=== PATIENT | female | born 1955 | race Caucasian/White ===

== ENCOUNTER → 2020-07-23 09:07 | Outpatient (BNVA) | payer OTHER, SELFPAY | PROVIDERS: PCP Internal Medicine; Referring Provider Internal Medicine; Visit Provider Surgery | DX: E66.3 Overweight (principal); Z68.27 Body mass index [BMI] 27.0-27.9, adult; K91.2 Postsurgical malabsorption, not elsewhere classified; Z98.84 Bariatric surgery status | CPT/HCPCS: 99212 ==

== ENCOUNTER → 2020-08-20 08:59 | Outpatient (BNVA) | payer OTHER, SELFPAY | PROVIDERS: PCP Internal Medicine; Visit Provider Dietitian, Registered | DX: Z76.89 Persons encountering health services in other specified circumstances (principal) ==

== ENCOUNTER → 2020-11-01 08:37 | Outpatient (BNVA) | payer OTHER, SELFPAY | PROVIDERS: PCP Internal Medicine; Visit Provider Physician Assistant ==

== ENCOUNTER → 2020-12-06 08:18 | Outpatient (BNVA) | payer OTHER, SELFPAY | PROVIDERS: PCP Internal Medicine; Visit Provider Physician Assistant ==

== ENCOUNTER → 2021-04-14 14:10 | Outpatient (BNVA) | payer OTHER, SELFPAY | PROVIDERS: PCP Internal Medicine; Referring Provider Internal Medicine; Visit Provider Surgery ==

== ENCOUNTER → 2021-05-28 11:08 | Outpatient (BNVA) | payer OTHER, SELFPAY | PROVIDERS: PCP Internal Medicine; Referring Provider Internal Medicine | DX: N20.0 Calculus of kidney (principal) ==

== ENCOUNTER 2022-05-07 12:38 | Outpatient (REF) | payer OTHER, SELFPAY ==
--- NOTE | ~2022-05-07 | US_ITS ---
EXAMINATION: US RETROPERITONEAL LIMITED (RENAL ONLY) CLINICAL INFORMATION: Calculus of kidney. COMPARISON: None TECHNIQUE: Real-time imaging of the kidneys. FINDINGS: RIGHT KIDNEY: 10.0 x 4.4 x 4.0 cm (SAG x AP x TRV). The kidney is normal in size, contour, and echogenicity. Renal cortical thickness is normal. There is a 2 mm stone in the midpole. No focal parenchymal lesions or hydronephrosis. LEFT KIDNEY: 9.9 x 4.8 x 5.3 cm (SAG x AP x TRV). The kidney is normal in size, contour, and echogenicity. Renal cortical thickness is normal. No calculi or focal parenchymal lesions. No hydronephrosis. US/US renal BI IMPRESSION: Small right renal stone.
== END 2022-05-07 12:39 | disposition home or self-care (01) ==
LOC: HO.US 12:38
DX: N20.0 Calculus of kidney (principal)
CPT/HCPCS: 76775

== ENCOUNTER 2023-05-14 09:33 | Outpatient (REF) | payer OTHER, SELFPAY ==
--- NOTE | ~2023-05-14 | US_ITS ---
EXAMINATION: US RETROPERITONEAL LIMITED (RENAL ONLY) CLINICAL INFORMATION: Personal history of urinary calculi. COMPARISON: Renal ultrasound 05/07/2022. TECHNIQUE: Real-time imaging of the kidneys. FINDINGS: RIGHT KIDNEY: 9.5 x 5.1 x 5.4 cm (SAG x AP x TRV). The kidney is normal in size, contour, and echogenicity. Renal cortical thickness is normal. No focal parenchymal lesions or hydronephrosis. Slightly increased 0.4 cm hyperechoic focus in the interpolar region previously 0.2 cm, with no associated posterior shadowing or twinkle artifact. LEFT KIDNEY: 9.4 x 4.8 x 5.8 cm (SAG x AP x TRV). The kidney is normal in size, contour, and echogenicity. Renal cortical thickness is normal. No calculi or focal parenchymal lesions. No hydronephrosis. US/US renal BI IMPRESSION: Slightly increased 0.4 cm hyperechoic focus in the interpolar region of the right kidney without discrete posterior shadowing nor twinkle artifact. Although this could represent a nonobstructive calculus, a very small angiomyolipoma is not excluded. Recommend continued follow-up by ultrasound with an interval study in 6-12 months.
== END 2023-05-14 09:34 | disposition home or self-care (01) ==
LOC: HO.US 09:33
PROVIDERS: PCP Internal Medicine; Visit Provider Urology
DX: Z87.442 Personal history of urinary calculi (principal)
CPT/HCPCS: 76775

== ENCOUNTER 2023-06-21 09:39 | Outpatient (AMB) | payer OTHER, SELFPAY ==
--- NOTE | 2023-06-21 09:47 | MHC.OFFVIS ---
Intake Intake Visit Reasons: 1 yr renal US(set) Intake Note: Patient is present for yearly ultrasound follow up /kidney stones Urology Medications: Magnesium, Vitamin B6 Blood Thinner: aspirin Manager Orange Required: No Accompanied by: Self / Same As Patient Allergies gentamicin [GENTAMICIN] Allergy (Unknown, Verified 06/21/23 10:12) SEVERE EYE PAIN Medication List - Last Reconciled 06/21/23 by REBEKAH Garcia- aspirin 81 mg PO DAILY benazepril 10 mg PO DAILY calcium citrate-vitamin D3 500-200 mg-unit tabs PO BID clotrimazole 1% 1 appl topical BID erfnvcvmquqf-niu-punl-FA-vit K 45 mg iron- 800 mcg-120 mcg (Bariatric Multivitamins) caps PO DAILY rosuvastatin (Crestor) 10 mg PO DAILY HPI HPI Comments History of Present Illness Details Luan is a very pleasant 67-year-old female patient. She has a past medical history of renal cysts, recurrent nephrolithiasis, hypertension, hyperlipidemia, diabetes, and overweight. She presents to the office today for follow-up of her nephrolithiasis. In discussion with the patient today she reports to be doing and feeling well. Recent renal imaging results reviewed with the patient today. Right kidney with no focal parenchymal lesions or hydronephrosis. Slightly increased 0.4 cm hyperechoic focus in the interpolar region previously 0.2 cm, with no associated posterior shadowing or twinkle artifact. Left kideny with no calculi or focal parenchymal lesions. No hydronephrosis. Slightly increased 0.4 cm hyperechoic focus in the interpolar region of the right kidney without discrete posterior shadowing nor twinkle artifact. Although this could represent a nonobstructive calculus, a very small angiomyolipoma is not excluded. Recommend continued follow-up by ultrasound with an interval study in 6-12 months per radiology report. When asked patient reports to be happy with current voiding parameters. She denies any issues with her urination. She denies urinary urgency, urinary frequency, incontinence, nocturia, hematuria, dysuria, foul smelling urine, changes to urinary stream, flank pain, fever, and or chills. In office urinalysis results reviewed with the patient today. She discusses recently losing her cousin to pancreatic cancer and also discusses her being a patient of Dr. Engle for renal cysts. She otherwise offers no issues or concerns. [facility] Medical History Renal cyst, acquired Recurrent nephrolithiasis Overweight History of kidney stones Hypertension Hyperlipidemia Type II diabetes mellitus Surgical History History of repair of hiatal hernia S/P laparoscopic sleeve gastrectomy History of colonoscopy Other specified postprocedural states History of endometrial ablation History of cholecystectomy Family History Father Hypertension Arthritis Macular degeneration Kidney disease Mother Atrial fibrillation History of colostomy H/O bilateral hip replacements Obesity CVD (cardiovascular disease) Brother Kidney stones Son Spina bifida Hypercholesterolemia History of multiple strokes Daughter Sarcoidosis Obesity Daughter Fibromyalgia Thrombosis Social History Alcohol intake: current Alcohol intake frequency: holidays/special occasions only Patient Tobacco Use Status: Never used Tobacco Review of Systems Const All systems reviewed & are unremarkable except as noted in HPI and below Eyes Reports no additional complaints ENT Reports no additional complaints Card Reports as per HPI Resp Reports no additional complaints GI Reports no additional complaints Reports as per HPI Musc Reports no additional complaints Neuro Reports no additional complaints Psych Reports no additional complaints Endo Reports as per HPI Ambrocio/Lymph Reports no additional complaints Aller/Immun Reports no additional complaints Physical Exam Const General: cooperative, comfortable, no acute distress, well developed, alert and awake Orientation/consciousness: patient oriented x3 HEENT Head: Yes normal to inspection, Yes normocephalic and Yes atraumatic Ears: hearing grossly normal bilaterally Eyes General: appearance normal, both eyes and all related structures Neck Neck: Yes normal visual inspection and Yes trachea midline Chest Chest palpation & inspection: normal inspection of the chest Resp Effort & Inspection: normal respiratory effort and able to speak in complete sentences Cardio Rate: regular rate GI Inspection: Yes normal to inspection General: Yes no CVA tenderness Back/Spine/Pelvis Back: no CVA tenderness Skin General skin exam: no rashes or lesions noted Neuro General: patient oriented x3 Extrem General: Yes normal to inspection Psych Appearance: grossly normal and well kempt Mental Status: mental status grossly normal Speech and movement: Normal speech and movement present and Clear speech present Affect: normal affect Attitude: cooperative Thought process: Normal thought process present Thought content: Normal thought content present Results AMB Urinalysis, Automated UA Leukoctes 0 Thalia/uL Last Edit by Hiral Sheets on 06/21/23 10:08 UA Nitrite Negative Last Edit by Hiral Sheets on 06/21/23 10:08 UA Urobilinogen 0.2 mg/dL Last Edit by Hiral Sheets on 06/21/23 10:08 UA Protein 15 mg/dL Last Edit by [employer]katie Sheets on 06/21/23 10:08 UA pH 8.0 Last Edit by [employer]katie Sheets on 06/21/23 10:08 UA Blood 0 Jae/uL Last Edit by [employer]katie Sheets on 06/21/23 10:08 UA Specific [place] 1.010 Last Edit by [employer]katie Sheets on 06/21/23 10:08 UA Ketone Negative Last Edit by [employer]katie Sheets on 06/21/23 10:08 UA Bilirubin 0 mg/dL Last Edit by [employer]katie Sheets on 06/21/23 10:08 UA Glucose 0 mg/dL Last Edit by [employer]katie Sheets on 06/21/23 10:08 Results Reviewed Results Reviewed: Laboratory Last Values Urine pH (Auto) 8.0 06/21/23 09:50 Specific [place] (Auto) 1.010 06/21/23 09:50 Urine Protein (Auto) 15 mg/dL 06/21/23 09:50 Glucose (UA)(Auto) 0 mg/dL 06/21/23 09:50 Urine Ketones (Auto) Negative 06/21/23 09:50 Urine Blood (Auto) 0 Jae/uL 06/21/23 09:50 Urine Nitrite (Auto) Negative 06/21/23 09:50 Urine Bilirubin (Auto) 0 mg/dL 06/21/23 09:50 Urine Urobilinogen (Auto) 0.2 mg/dL 06/21/23 09:50 Leukocyte Esterase (Auto) 0 Thalia/uL 06/21/23 09:50 Date of Service: 05/14/23 EXAMINATION: US RETROPERITONEAL LIMITED (RENAL ONLY) FINDINGS: RIGHT KIDNEY: 9.5 x 5.1 x 5.4 cm (SAG x AP x TRV). The kidney is normal in size, contour, and echogenicity. Renal cortical thickness is normal. No focal parenchymal lesions or hydronephrosis. Slightly increased 0.4 cm hyperechoic focus in the interpolar region previously 0.2 cm, with no associated posterior shadowing or twinkle artifact. LEFT KIDNEY: 9.4 x 4.8 x 5.8 cm (SAG x AP x TRV). The kidney is normal in size, contour, and echogenicity. Renal cortical thickness is normal. No calculi or focal parenchymal lesions. No hydronephrosis. IMPRESSION: Slightly increased 0.4 cm hyperechoic focus in the interpolar region of the right kidney without discrete posterior shadowing nor twinkle artifact. Although this could represent a nonobstructive calculus, a very small angiomyolipoma is not excluded. Recommend continued follow-up by ultrasound with an interval study in 6-12 months. Assessment & Plan Assessment & Plan (1) Angiolipoma: Code(s): D17.9 - Benign lipomatous neoplasm, unspecified (2) History of kidney stones: Code(s): Z87.442 - Personal history of urinary calculi Plan In office urinalysis results reviewed with the patient today. Recent renal imaging results reviewed with the patient today; as noted above. Continue vit B6 as discussed and prescribed. Continue adding one ounce of lemon juice to water daily Continue drinking plenty of water daily. Will obtain renal ultrasound in 6 months Follow-up in 6 months with imaging to be completed prior; or sooner with any issues, concerns, and or questions. Orders: Orders AMB Urinalysis Automated Today Z13.9 - Encounter for screening, unspecified US renal BI 6 Months D17.9 - Benign lipomatous neoplasm, unspecified, N20.0 - Calculus of kidney Patient Instructions: The patient had an opportunity to ask questions regarding the treatment plan. All questions were answered. Physical exam, labs, and imaging were discussed and reviewed in detail. As well as risks, benefits, and discussion of treatment choices. No major barriers to understanding were identified. The patient expressed understanding and agreement with the above treatment plan. The patient was made aware they should contact our office by phone for worsening of their current condition, the appearance of new symptoms, or with any questions or concerns. Compliance is encouraged with any medications and follow up testing that is ordered. It is a privilege to be allowed the opportunity to participate in? your urological care.? Again, if you have any questions or concerns If you have any questions or concerns please do not hesitate to contact me. The office is [phone]. This note is constructed using voice recognition software. While every effort has been made to ensure accuracy chief writer errors may have been included. Yours sincerely, REBEKAH Garcia-VINH Coding Level of Care Code Est Pt Level 3 (65140) Diagnoses Angiolipoma D17.9 History of kidney stones Z87.442
== END 2023-06-21 10:52 | disposition home or self-care (01) ==
PROVIDERS: PCP Internal Medicine; Visit Provider Nurse Practitioner Family
DX: D17.9 Benign lipomatous neoplasm, unspecified (principal); Z87.442 Personal history of urinary calculi; Z13.9 Encounter for screening, unspecified
CPT/HCPCS: 99213

== ENCOUNTER → 2023-06-21 09:39 | Outpatient (BNVA) | payer OTHER, SELFPAY | PROVIDERS: Visit Provider Nurse Practitioner Family | DX: Z87.442 Personal history of urinary calculi (principal) | CPT/HCPCS: 81003 ==

== ENCOUNTER 2023-12-13 08:39 | Outpatient (REF) | payer OTHER, SELFPAY ==
--- NOTE | ~2023-12-13 | US_ITS ---
EXAMINATION: US RETROPERITONEAL LIMITED (RENAL ONLY) CLINICAL INFORMATION: Calculus of kidney. COMPARISON: Renal ultrasound 05/14/2023 and 05/07/2022. TECHNIQUE: Real-time imaging of the kidneys. FINDINGS: RIGHT KIDNEY: 9.9 x 4.8 x 4.8 cm (SAG x AP x TRV). The kidney is normal in size, contour, and echogenicity. Renal cortical thickness is normal. No calculi or focal parenchymal lesions. No hydronephrosis. LEFT KIDNEY: 9.7 x 4.7 x 4.5 cm (SAG x AP x TRV). The kidney is normal in size, contour, and echogenicity. Renal cortical thickness is normal. No focal parenchymal lesions or hydronephrosis. There is 0.3 x 0.2 x 0.3 cm nonobstructing calculus in the lower pole US/US renal BI IMPRESSION: Nonobstructing calculus in lower pole of left kidney and unremarkable right kidney.
== END 2023-12-13 08:40 | disposition home or self-care (01) ==
LOC: HO.US 08:39
PROVIDERS: PCP Internal Medicine; Visit Provider Nurse Practitioner Family
DX: N20.0 Calculus of kidney (principal); D17.9 Benign lipomatous neoplasm, unspecified
CPT/HCPCS: 76775

== ENCOUNTER 2023-12-21 10:30 | Outpatient (AMB) | payer OTHER, SELFPAY ==
--- NOTE | 2023-12-21 10:43 | A.OFFVIS_ITS ---
Intake Intake Visit Reasons: 6m/US(set) Intake Note: Patient presents today for a follow up on: US Meds- None Allergies to Antibiotic- Gentamicin Blood Thinner- Aspirin No urine was provided in today's visit Asphalt Mixer Required: No Accompanied by: Self / Same As Patient Allergies gentamicin [GENTAMICIN] Allergy (Unknown, Verified 12/21/23 12:01) SEVERE EYE PAIN Medication List - Last Reconciled 12/21/23 by REBEKAH Garcia-VINH aspirin 81 mg PO DAILY benazepril 10 mg PO DAILY calcium citrate-vitamin D3 500-200 mg-unit tabs PO BID clotrimazole 1% 1 appl topical BID jrigadkxonju-udy-ucic-FA-vit K 45 mg iron- 800 mcg-120 mcg (Bariatric Multivitamins) caps PO DAILY rosuvastatin (Crestor) 10 mg PO DAILY semaglutide (Ozempic) mg subcut HPI HPI Comments History of Present Illness Details Luan is a very pleasant 68-year-old female patient. She has a past medical history of renal cysts, recurrent nephrolithiasis, hypertension, hyperlipidemia, diabetes, and overweight. She presents to the office today for follow-up of her nephrolithiasis. In discussion with the patient today she reports to be doing and feeling well. Recent renal imaging results reviewed with the patient today. Bilateral kidneys with no hydronephrosis or lesions. 3 mm nonobstructing left lower pole calculus. She reports to be drinking plenty of water daily. She discusses being unable to add lemon juice to water as she experiences breakouts around her mouth when eating or consuming acidic foods. She does report having had lower back pain recently. However no CVA tenderness noted bilaterally. She otherwise denies any bothersome urinary issues or concerns. She denies urinary urgency, urinary frequency, incontinence, nocturia, hematuria, dysuria, foul smelling urine, changes to urinary stream, flank pain, fever, and or chills. In office urinalysis results reviewed with the patient today. She otherwise offers no issues or concerns. [facility], [facility] Medical History Renal cyst, acquired Recurrent nephrolithiasis Overweight History of kidney stones Hypertension Hyperlipidemia Type II diabetes mellitus Surgical History History of repair of hiatal hernia S/P laparoscopic sleeve gastrectomy History of colonoscopy Other specified postprocedural states History of endometrial ablation History of cholecystectomy Family History Father Hypertension Arthritis Macular degeneration Kidney disease Mother Atrial fibrillation History of colostomy H/O bilateral hip replacements Obesity CVD (cardiovascular disease) Brother Kidney stones Son Spina bifida Hypercholesterolemia History of multiple strokes Daughter Sarcoidosis Obesity Daughter Fibromyalgia Thrombosis Social History Alcohol intake: current Alcohol intake frequency: holidays/special occasions only Patient Tobacco Use Status: Never used Tobacco Review of Systems Const All systems reviewed & are unremarkable except as noted in HPI and below Eyes Reports no additional complaints ENT Reports no additional complaints Card Reports as per HPI Resp Reports no additional complaints GI Reports no additional complaints Reports as per HPI Musc Reports no additional complaints Neuro Reports no additional complaints Psych Reports no additional complaints Endo Reports as per HPI Ambrocio/Lymph Reports no additional complaints Aller/Immun Reports no additional complaints Physical Exam Const General: cooperative, healthy appearing, comfortable, no acute distress, well developed, alert and awake Orientation/consciousness: patient oriented x3 Limitations: no limitations HEENT Head: Yes normal to inspection, Yes normocephalic and Yes atraumatic Ears: hearing grossly normal bilaterally Eyes General: appearance normal, both eyes and all related structures Neck Neck: Yes normal visual inspection and Yes trachea midline Chest Chest palpation & inspection: normal inspection of the chest Resp Effort & Inspection: normal respiratory effort and able to speak in complete sentences Cardio Rate: regular rate GI Inspection: Yes normal to inspection General: Yes no CVA tenderness Back/Spine/Pelvis Back: no CVA tenderness Skin General skin exam: no rashes or lesions noted Neuro General: patient oriented x3 Extrem General: Yes normal to inspection Psych Appearance: grossly normal and well kempt Mental Status: mental status grossly normal Speech and movement: Normal speech and movement present and Clear speech present Affect: normal affect Attitude: cooperative Thought process: Normal thought process present Thought content: Normal thought content present Insight: Fair insight present (Psych) Judgement: Fair judgement present (Psych) Results Reviewed Results Reviewed: Date of Service: 12/13/23 Procedure(s): US renal BI Calculus of kidney. FINDINGS: RIGHT KIDNEY: 9.9 x 4.8 x 4.8 cm (SAG x AP x TRV). The kidney is normal in size, contour, and echogenicity. Renal cortical thickness is normal. No calculi or focal parenchymal lesions. No hydronephrosis. LEFT KIDNEY: 9.7 x 4.7 x 4.5 cm (SAG x AP x TRV). The kidney is normal in size, contour, and echogenicity. Renal cortical thickness is normal. No focal parenchymal lesions or hydronephrosis. There is 0.3 x 0.2 x 0.3 cm nonobstructing calculus in the lower pole IMPRESSION: Nonobstructing calculus in lower pole of left kidney and unremarkable right kidney. Assessment & Plan Assessment & Plan (1) History of kidney stones: Code(s): Z87.442 - Personal history of urinary calculi (2) Nephrolithiasis: Code(s): N20.0 - Calculus of kidney Plan In office urinalysis results reviewed with the patient today; as noted above. Recent renal imaging results reviewed with the patient today; as noted above. Discussed at length potential causes of nephrolithiasis. Patient currently denies any bothersome urinary issues or concerns. Patient reports be happy with current voiding parameters. Discussed, educated, and stressed the importance of drinking plenty of water daily. Will obtain renal ultrasound in 1 year. Follow-up in 1 year with imaging to be completed prior; or sooner with any issues, concerns, and or questions. Patient Instructions: The patient had an opportunity to ask questions regarding the treatment plan. All questions were answered. Physical exam, labs, and imaging were discussed and reviewed in detail. As well as risks, benefits, and discussion of treatment choices. No major barriers to understanding were identified. The patient expressed understanding and agreement with the above treatment plan. The patient was made aware they should contact our office by phone for worsening of their current condition, the appearance of new symptoms, or with any questions or concerns. Compliance is encouraged with any medications and follow up testing that is ordered. It is a privilege to be allowed the opportunity to participate in? your urological care.? Again, if you have any questions or concerns If you have any questions or concerns please do not hesitate to contact me. The office is [phone]. This note is constructed using voice recognition software. While every effort has been made to ensure accuracy human resources talent manager errors may have been included. Yours sincerely, MASOOD Garcia Coding Level of Care Code Est Pt Level 3 (81369) Diagnoses History of kidney stones Z87.442 Nephrolithiasis N20.0
== END 2023-12-21 11:33 | disposition home or self-care (01) ==
PROVIDERS: PCP Internal Medicine; Visit Provider Nurse Practitioner Family
DX: Z87.442 Personal history of urinary calculi (principal); N20.0 Calculus of kidney
CPT/HCPCS: 99213

== ENCOUNTER → 2023-12-21 10:30 | Outpatient (BNVA) | payer OTHER, SELFPAY | PROVIDERS: PCP Internal Medicine; Visit Provider Nurse Practitioner Family ==

== ENCOUNTER 2024-04-05 14:04 | Outpatient (AMB) | payer OTHER, SELFPAY ==
--- NOTE | 2024-04-05 14:06 | A.OFFVIS_ITS ---
VS Expanded 04/05/24 14:17 BP 162/82 H Blood Pressure Location Rt brachial Blood Pressure Position Sitting Pulse 68 Temp 97.6 F Temperature Source Tympanic Pulse Oximetry 96 Oxygen Delivery Method Room Air Height 5 ft 1 in Weight 157 lb 9.6 oz BMI 29.8 Body Fat % 31.4 Body Fat Mass 49.4 Fat Free Mass 108.0 Visceral Fat Rating 9.0 Body Water % 48.3 Body Water Mass 76.0 Muscle Mass/Score 102.6 Basal Metabolic Rate/Score 1,439 Intake Visit Reasons: OV PO LSG 04/12/2019 Allergies gentamicin [GENTAMICIN] Allergy (Unknown, Verified 04/05/24 14:11) SEVERE EYE PAIN Medication List - Last Reconciled 04/05/24 by CIARA Izaguirre aspirin 81 mg PO DAILY benazepril 10 mg PO DAILY calcium citrate-vitamin D3 500-200 mg-unit tabs PO BID clotrimazole 1% 1 appl topical BID acnksuywpowo-dkm-ydlp-FA-vit K 45 mg iron- 800 mcg-120 mcg (Bariatric Multivitamins) caps PO DAILY rosuvastatin (Crestor) 10 mg PO DAILY semaglutide (Ozempic) mg subcut HPI Comments Details: This?is a?68?yo female who is s/p LSG 04/12/2019. Presents for 5 year post op visit. Weight at last visit on 04/14/2021 was 152 pounds with a BMI of 28.7, weight today is 157.6 pounds, representing a 5.6 pound weight gain with a BMI today of 29.8.? No complaints of nausea, emesis, reflux, or constipation. Occasional pain when eating protein- shakes or meat, dairy. Taking Ozempic but feels it is not helpful in terms of what she eats but she thinks it controls her blood sugars better. Present meal plan includes: 3oz meat, small portion of carb, similar portion of vegetables -2 meals per day like this intermittently uses protein shakes in her coffee struggles with nighttime snacking- tries to have fruit, cheese/crackers, or PB toast; sometimes will have cookies or popcorn MVI Exercise routine includes: walking- 30 min 2-3x/week PFSH Medical History Renal cyst, acquired Recurrent nephrolithiasis Overweight History of kidney stones Hypertension Hyperlipidemia Type II diabetes mellitus Surgical History History of repair of hiatal hernia S/P laparoscopic sleeve gastrectomy History of colonoscopy Other specified postprocedural states History of endometrial ablation History of cholecystectomy Family History Father Hypertension Arthritis Macular degeneration Kidney disease Mother Atrial fibrillation History of colostomy H/O bilateral hip replacements Obesity CVD (cardiovascular disease) Brother Kidney stones Son Spina bifida Hypercholesterolemia History of multiple strokes Daughter Sarcoidosis Obesity Daughter Fibromyalgia Thrombosis Social History Alcohol intake: current Alcohol intake frequency: holidays/special occasions only Patient Tobacco Use Status: Never used Tobacco Assessment & Plan Assessment & Plan (1) S/P laparoscopic sleeve gastrectomy: Code(s): Z98.84 - Bariatric surgery status Category: Surgical (2) Overweight: Code(s): E66.3 - Overweight Category: Medical Plan Suggested incorporating protein knowles to make sure pt gets adequate protein per day. She knows she needs to cut back on evening snacking. Suggested increasing days per week walking and time spent. Labs ordered. RTC 1 year, gave pt my cell phone # for any questions between now and next appt. I spent a total of 30 minutes reviewing/updating records, examining the patient and counseling the patient on weight management as detailed above. Orders: Orders Insulin Today Z98.84 - Bariatric surgery status Hemoglobin A1c Today Z98.84 - Bariatric surgery status Lipid Panel Today Z98.84 - Bariatric surgery status Vitamin B12 and Folate Today Z98.84 - Bariatric surgery status Zinc Today Z98.84 - Bariatric surgery status Complete Blood Count Auto Diff Today Z98.84 - Bariatric surgery status IRON PROFILE Today Z98.84 - Bariatric surgery status Comprehensive Met. Panel Today Z98.84 - Bariatric surgery status C Reactive Protein Today Z98.84 - Bariatric surgery status Vitamin B1 Today Z98.84 - Bariatric surgery status Vitamin A Today Z98.84 - Bariatric surgery status TSH reflex Free T4 Today Z98.84 - Bariatric surgery status Ferritin Today Z98.84 - Bariatric surgery status Vitamin D 25-OH Total Today Z98.84 - Bariatric surgery status
[2024-04-05 14:17] VITALS: BP 162/82; PULSE 68; TEMP 36.4; O2SAT 96; BMI 29.8
== END 2024-04-05 14:47 | disposition home or self-care (01) ==
PROVIDERS: PCP Internal Medicine; Visit Provider Physician Assistant Surgical
DX: E66.3 Overweight (principal); Z68.29 Body mass index [BMI] 29.0-29.9, adult; Z90.3 Acquired absence of stomach [part of]; Z98.84 Bariatric surgery status
CPT/HCPCS: 99214

== ENCOUNTER → 2024-04-05 14:04 | Outpatient (BNVA) | payer OTHER, SELFPAY | PROVIDERS: PCP Internal Medicine; Visit Provider Physician Assistant Surgical ==

== ENCOUNTER 2024-04-20 15:04 | Outpatient (REF) | payer OTHER, SELFPAY ==
[2024-04-20 15:25] LABS: MANUAL DIFF FLAG NO
[2024-04-20 17:30] LABS: Basophils Percent Auto 0.5 % (0-2); Eosinophils Absolute Auto 0.1 X10*3/uL (0.0-0.4); Eosinophils Percent Auto 1.4 % (0-4); Hematocrit 41.4 % (37.0-47.0); Hemoglobin 13.8 g/dl (12.0-16.0); Imm Gran Abs Auto 0.03 X10*3/uL (0.00-0.03); Imm Gran Pct Auto 0.5 % (0.0-0.4); Lymphocytes Absolute Auto 2.2 X10*3/uL (1.2-4.9); Lymphocytes Percent Auto 34.3 % (20-40); Mean Corpuscular HGB Conc 33.3 g/dl (31.0-35.0); Mean Corpuscular Hemoglobin 31.2 pg (27.0-33.0); Mean Corpuscular Volume 93.7 fL (80.0-98.0); Mean Platelet Volume 11.4 fL (9.4-12.3); Monocytes Absolute Auto 0.4 X10*3/uL (0.1-1.2); Monocytes Percent Auto 5.5 % (2-11); Neutrophils Absolute Auto 3.8 x10*3/uL (2.0-8.3); Neutrophils Percent Auto 57.8 % (45-73); Platelet Count 214 X10*3/uL (160-400); Red Blood Count 4.42 X10*6/uL (4.20-5.50); White Blood Count 6.5 X10*3/uL (4.8-10.8)
[2024-04-20 17:48] LABS: Alanine Aminotransferase 22 U/L (0-31); Albumin Level 4.1 g/dL (3.5-5.0); Alkaline Phosphatase 63 U/L (39-117); Anion Gap 13 (12-20); Aspartate Amino Transferase 27 U/L (5-31); Bilirubin Total 0.4 mg/dL (0.0-1.0); Blood Urea Nitrogen 16 mg/dL (9-16); C Reactive Protein < 0.10 mg/dL (< or = 0.50); Calcium 9.4 mg/dL (8.4-10.2); Carbon Dioxide 27 mmol/L (22-29); Chloride 105 mmol/L (96-108); Cholesterol 134 mg/dL (<200); Estimated Glomerular Filt Rate > 60; Glucose Random 96 mg/dL (60-115); HDL Cholesterol 59 mg/dL (>40); Iron 123 mcg/dL (30-160); LDL Cholesterol Calculated 55 mg/dL (<100); Percent Iron Saturation 43 % (15-50); Potassium 4.1 mmol/L (3.3-5.1); Sodium 141 mmol/L (135-145); Total Iron Binding Capacity 283 mcg/dL (228-428); Total Protein 7.3 g/dL (6.5-8.0); Triglycerides 101 mg/dL (<150); Unsaturated Iron Binding 160 ug/dL
[2024-04-20 17:54] LABS: Ferritin 128 ng/mL (10-250); Insulin 9 uU/mL (2-29); TSH reflex Free T4 0.99 uIU/mL (0.32-4.0); Vitamin D 25-OH Total 31.3 ng/mL (>30)
[2024-04-20 18:07] LABS: Folate 11.9 ng/mL (> or = 4.0); Vitamin B12 377 pg/mL (200-900)
[2024-04-21 05:23] LABS: Estimated Average Glucose 108 mg/dL; Hemoglobin A1c % 5.4 % (<6.0)
[2024-04-26 06:33] LABS: Vitamin B1 15 nmol/L (8-30)
== END 2024-04-20 15:05 | disposition home or self-care (01) ==
LOC: HO.LAB 15:04
PROVIDERS: PCP Internal Medicine; Visit Provider Physician Assistant Surgical
DX: Z98.84 Bariatric surgery status (principal); Z13.1 Encounter for screening for diabetes mellitus
CPT/HCPCS: 36415; 80053; 80061; 82306; 82607; 82728; 82746; 83036; 83525; 83540; 84425; 84443; 84590; 84630; 85025; 86140

== ENCOUNTER 2024-12-07 15:27 | Outpatient (REF) | payer MEDICARE, SELFPAY ==
--- NOTE | ~2024-12-07 | US_ITS ---
EXAMINATION: US KIDNEY BILATERAL HISTORY: N20.0 - Calculus of kidney TECHNIQUE: Real-time grayscale ultrasound imaging of the kidneys was performed and images were reviewed. COMPARISON: Comparison is made with the prior examination dated 12/13/2023. FINDINGS: Right kidney: The right kidney measures 9.7 x 5.2 x 5.3 cm. Renal parenchymal echotexture and thickness are normal. There are no masses. There is no hydronephrosis or renal calculi. Left Kidney: The left kidney measures 10.1 x 4.1 x 4.7 cm. Renal parenchymal echotexture and thickness are normal. There are no masses. There is no hydronephrosis or renal calculi. The previously seen 3 mm calculus of the lower pole of the left kidney is not identified. US/US renal BI IMPRESSION: Unremarkable renal ultrasound. Electronically signed by: Chadd Richter MD 12/08/2024 07:54 AM EDT
--- OUTSIDE RECORDS SUMMARY | 2024-12-07 17:48 | XMS_ITS | Clinical Summary ---
Author Organization [email or web address] [facility] Address [address] [place] [address] Care Team Providers Care Supervisor Liquefaction Name Role Phone Karthik Appiah MD Primary Care Provider + [phone] Surgical History Surgery Date Site/Laterality Comments CHOLECYSTECTOMY PROCEDURE: HISTORICAL CHOLECYSTECTOMY STOMACH SURGERY 04/12/2019 PROCEDURE: MI UNLISTED PROCEDURE STOMACH; COMMENT: gastric sleeve OTHER SURGICAL HISTORY PROCEDURE: HYSTEROSCOPY, SURGICAL/ABLATION OTHER SURGICAL HISTORY 04/12/2019 PROCEDURE: MI RPR PARAESOPH HIATAL HERNIA W/LAPT W/O MESH; COMMENT: Same time as lap gastric sleeve surgery OTHER SURGICAL HISTORY 04/12/2019 PROCEDURE: MI EGD DILATION GASTRIC/DUODENAL STRICTURE; COMMENT: Same time as lap gastric sleeve surgery Medical History Medical History Date Comments Mixed hyperlipidemia DX:Mixed hy perlipidemia Essential (primary) hypertension DX:Essential (primary) hypertension Type 2 diabetes mellitus wit hout complications DX:Type 2 diabetes mellitus without complications (HCC) Intestinal malabsorption fol lowing gastrectomy 06/04/2021 DX:Intestinal malabsorption following gastrectomy Family History Medical History Relation Name Comments Other: Cholelithiasis Brother Other: fibromyalgia Daughter 1 Thrombos is Obesity Daughter 2 Sarcoidosis Hypertension Father Arthritis, Macu lar degeneration, kidney disease Coronary artery disease Mother A-fi b, bilateral hip replacements, colostomy, obesity Hyperlipidemia Son Spina bifida, hx multiple strokes Relation Name Status Comments Brother Daughter 1 Daughter 2 Father Mother Son Social History Tobacco Use Types Packs/Day Years Used Date Smoking Tobacco: Never Smokeless Tobacco: Never Alcohol Use Standard Drinks/Week Comments Never 0 (1 standard drink = 0.6 oz pur e alcohol) Comments Unknown Sex and Gender Information Value Date Recorded Sex Assigned at Female 12/07/2024 2:02 PM EDT Legal Sex Female 10:03 PM EST Gender Identity Female 12/07/2024 2:02 PM EDT Sexual Orientation Straight 12/07/2024 2: 02 PM EDT Obstetrics History Plan of Treatment Upcoming Encounters Date Type Department Care Team (Late st Contact Info) Description 01/02/2025 8:30 AM EDT Appointment [facility] [address] [place] [phone] 01/02/2025 9:00 AM EDT Appointment [facility] [address] [place] [phone] Health Maintenance Due Date Last Done Comments Diabetes: Annual GFR (Glomerular Filtration Rate) 1954 Diabetes: Annual Foot Exam 1964 Diabetes: Annual Retina Eye Exam 1964 DTaP,Tdap,and Td Vaccines (1 - Tdap) 1973 Pneumococcal Vaccine: 50+ Years (1 of 1 - PCV) 2004 Zoster Vaccines (1 of 2) 2004 Cholesterol Screening (Lipid Panel) 08/22/2022 Colorectal Cancer Screening: Colonoscopy 08/22/2022 Depression Screening 08/22/2022 Falls Risk Assessment 08/22/2022 Hepatitis C Screening 08/22/2022 Social Influencers of Health Screening 08/22/2022 Diabetes: Annual Urine Albumin-Creatinine Ratio (uACR) 09/04/2022 Diabetes: Blood Sugar Contro l Test (HGBA1C) 09/04/2022 Hypertension/CHF/CAD Annual BMP Blood Test 09/04/2022 Breast Cancer Screening 12/20/2023 12/20/19, 08/19/2020, 01/09/2019 COVID-19 Vaccine ( - 2023-2 5 season) 2024 Influenza Vaccine (#1) 2024 RSV Immunization Patients 60 + Years Old (1 - 1-dose 75+ series) 2029 Osteoporosis Screening (Bone Density Screening) 08/19/2030 08/19/2020 HIB Vaccines Aged Out No longer eligi ble based on patient's age to complete this topic HPV Vaccines Aged Out No longer eligi ble based on patient's age to complete this topic Hepatitis A Vaccines Aged Out No long er eligible based on patient's age to complete this topic Hepatitis B Vaccines Aged Out No long er eligible based on patient's age to complete this topic IPV Vaccines Aged Out No longer eligi ble based on patient's age to complete this topic MMR Vaccines Aged Out No longer eligi ble based on patient's age to complete this topic Meningococcal ACWY Vaccine Aged Out N o longer eligible based on patient's age to complete this topic Meningococcal B Vacine Aged Out No lo nger eligible based on patient's age to complete this topic RSV Immunization Patients Under 20 months Aged Out No longer eligible b ased on patient's age to complete this topic Varicella Vaccines Aged Out No longer eligible based on patient's age to complete this topic Procedures Procedure Name Priority Date/Time Associated Diagnosis Comments [facility] SCREENING DIGITAL Routine 12/19/2021 1:46 PM EDT Encounter for screening mammogram for malignant neoplasm of breast [facility] DEXA AXIAL SKELETON Routine 08/19/2020 3:14 PM EST Asymptomatic menopausal state from Last 3 Months or Most Recently Relevant to Health Maintenance Results * [facility] SCREENING DIGITAL (12/19/2021 1:46 PM EDT) Anatomical Region Laterality Modality Mammography 12/19/2021 12:5 9 PM EDT Narrative 12/19/2021 1:46 PM EDT [facility] Diagnostic Imaging Department [address] [place] [address] Patient: ??LUAN ZARAGOZA ?/Age/Sex: 1955 - Unit#: ??[id number] ? Location/Status: ??SPDIMAM/REG CLI ? Mnemonic/Ordering Site: ??DIGSC/SPMAM Ordering Physician: ??KARTHIK APPIAH MD [facility] Screening Digital - 12/19/21 - 1319 EXAM: [facility] Screening Digital EXAM DATE AND TIME: 12/19/2021 1:20 PM HISTORY: ??Screening. Family history of breast carcinoma including maternal aunts and 4 paternal cousins. COMPARISON: ??08/19/20, 01/09/19, 05/04/16, 12/31/14 TECHNIQUE: CC and MLO views of both breasts were obtained using full field digital mammography. Bilateral digital breast tomosynthesis was performed in the MLO projection. Computer aided detection with the Estify.2-H was employed. TISSUE DENSITY: b. There are scattered areas of fibroglandular density. FINDINGS: Numerous microcalcifications are scattered bilaterally, showing no significant change. No suspicious masses, grouped microcalcifications, or areas of architectural distortion are seen. Vascular calcification is present. The skin is unremarkable. IMPRESSION: Stable mammographic appearance of the breasts. ??No evidence of malignancy is seen. A negative mammogram in the presence of a clinically suspicious palpable abnormality does not preclude the possibility of malignancy or alter the indications for biopsy. BI-RADS: ??Category 2: Benign RECOMMENDATION(S): 1: Routine screening mammogram BILATERAL in 1 year. 87053, 37328 3342F, 7025F Dictating Physician: ??UMU BURNS MD Electronically Signed by: ??UMU BURNS MD Dic Date/Time: ??12/19/21 1345 Sign date/Time: ??12/19/21 1346 Procedure Note Umu Burns MD - 09/09/2022 [facility] Diagnostic Imaging Department [address] [place] [address] Patient: LUAN ZARAGOZA /Age/Sex: 1955 - 66 - F Unit#: [id number] [facility]/Ordering Site: [facility] Ordering Physician: KARTHIK APPIAH MD [facility] Screening Digital - 12/19/21 - 1319 EXAM: [facility] Screening Digital EXAM DATE AND TIME: 12/19/2021 1:20 PM HISTORY: Screening. Family history of breast carcinoma includingmaternal aunts and 4 paternal cousins. COMPARISON: 08/19/20, 01/09/19, 05/04/16, 12/31/14 TECHNIQUE: CC and MLO views of both breasts were obtained using fullfield digital mammography. Bilateral digital breast tomosynthesis was performedin the MLO projection. Computer aided detection with the [employer] 7.2-Hwas employed. TISSUE DENSITY: b. There are scattered areas of fibroglandular density. FINDINGS: Numerous microcalcifications are scattered bilaterally, showing nosignificant change. No suspicious masses, grouped microcalcifications, or areas of architectural distortion are seen. Vascular calcification is present. The skin is unremarkable. IMPRESSION: Stable mammographic appearance of the breasts. No evidence of malignancyis seen. A negative mammogram in the presence of a clinically suspicious palpable abnormality does not preclude the possibility of malignancy or alter the indications for biopsy. BI-RADS: Category 2: Benign RECOMMENDATION(S): 1: Routine screening mammogram BILATERAL in 1 year. 38293, 58991 3342F, 7025F Dictating Physician: UMU BURNS MD Electronically Signed by: UMU BURNS MD Dic Date/Time: 12/19/21 1345 Sign date/Time: 12/19/21 1346 Karthik Appiah MD IMG BI PROCEDURES Final Resu lt * [facility] DEXA AXIAL SKELETON (08/19/2020 3:14 PM EST) Anatomical Region Laterality Modality Mammography 08/19/2020 11:2 1 AM EST Narrative 08/19/2020 3:14 PM EST [facility] Diagnostic Imaging Department [address] [place] [id number] Patient: ??LUAN ZARAGOZA ?/Age/Sex: 1955 - 64 - F Unit#: ??[id number] ? Location/Status: ??SPDIMAM/REG CLI ? Mnemonic/Ordering Site: ??MAMDEXAAX/SPMAM Ordering Physician: ??KARTHIK APPIAH MD [facility] Dexa Axial Skeleton - 08/19/20 - 1140 [facility] Dexa Axial Skeleton INDICATION: POSTMENOPAUSAL Technique: Bone densitometry was performed utilizing dual energy x-ray absorptiometry (DEXA). The lumbar spine is evaluated in the AP projection from L1 through L4. The proximal femora are evaluated in the AP projection bilaterally. The patient is taking calcium and vitamin D supplements. COMPARISON: 05/04/2016 FINDINGS: AP spine: Bone mineral density: 1.382 gm/cm2 T-score: 1.7 Femoral total (mean, bilateral): Bone mineral density: 1.115 gm/cm2 T-score: 0.9 IMPRESSION: Findings suggesting normal bone mineral density. Statistically significant interval decrease in total mean hip bone mineral density [id number] A report detailing these results has been enclosed. Dictating Physician: ??SHERICE WHALEN MD Electronically Signed by: ??SHERICE WHALEN MD Dic Date/Time: ??08/19/201512 Sign date/Time: ??08/19/201513 Procedure Note Sherice Whalen MD - 09/08/2022 [facility] Diagnostic Imaging Department [address] [place] [address] Patient: BEMICAH VENTURAChristiano Gallagher /Age/Sex: 1955 - 64 - F Unit#: [id number] [facility]onic[facility]Ordering Site: [facility] Ordering Physician: KARTHIK APPIAH MD [facility] Dexa Axial Skeleton - 08/19/20 - 1140 [facility] Dexa Axial Skeleton INDICATION: POSTMENOPAUSAL Technique: Bone densitometry was performed utilizing dual energy x-ray absorptiometry (DEXA). The lumbar spine is evaluated in the AP projectionfrom L1 through L4. The proximal femora are evaluated in the AP projection bilaterally. The patient is taking calcium and vitamin D supplements. COMPARISON: 05/04/2016 FINDINGS: AP spine: Bone mineral density: 1.382 gm/cm2 T-score: 1.7 Femoral total (mean, bilateral): Bone mineral density: 1.115 gm/cm2 T-score: 0.9 IMPRESSION: Findings suggesting normal bone mineral density. Statistically significant interval decrease in total mean hip bonemineral density 81663 A report detailing these results has been enclosed. Dictating Physician: SHERICE WHALEN MD Electronically Signed by: SHERICE WHALEN MD Dic Date/Time: 08/19/20 151 Sign date/Time: 08/19/201513 Karthik Appiah MD IMG BI PROCEDURES Final Resu lt from Last 3 Months or Most Recently Relevant to Health Maintenance Insurance [employer] MED[employer]ARE [employer]VANTAGE Care Teams Supervisor Liquefaction Relationship Specialty Start Date End Date Karthik Appiah MD [address] [place] [id number] PCP - General Internal Medicine 04/21/21
== END 2024-12-07 15:28 | disposition home or self-care (01) ==
LOC: HO.US 15:27
PROVIDERS: PCP Internal Medicine; Visit Provider Nurse Practitioner Family
DX: D17.9 Benign lipomatous neoplasm, unspecified (principal); N20.0 Calculus of kidney
CPT/HCPCS: 76775

== ENCOUNTER → 2024-12-07 15:29 | Outpatient (BNV) | payer MEDICARE, SELFPAY | PROVIDERS: PCP Internal Medicine; Visit Provider Radiology Diagnostic Radiology | DX: N20.0 Calculus of kidney (principal) | CPT/HCPCS: 76775 ==

== ENCOUNTER 2024-12-20 09:35 | Outpatient (AMB) | payer OTHER, SELFPAY ==
--- NOTE | 2024-12-20 09:36 | A.OFFVIS_ITS ---
Intake Visit Reasons: 1y/US(set) Intake Note: Patient presents today for a 1 year follow up/US Urology Meds- None Allergies to Antibiotic- Gentamicin Blood Thinner- Aspirin Loss Prevention Officer Required: No Accompanied by: Self / Same As Patient Allergies gentamicin [GENTAMICIN] Allergy (Unknown, Verified 12/20/24 09:47) SEVERE EYE PAIN Medication List - Last Reconciled 12/20/24 by REBEKAH Garcia-VINH aspirin 81 mg PO DAILY benazepril 10 mg PO DAILY calcium citrate-vitamin D3 500-200 mg-unit tabs PO BID clotrimazole 1% 1 appl topical BID zznfglwscrda-cet-dupi-FA-vit K 45 mg iron- 800 mcg-120 mcg (Bariatric Multivitamins) caps PO DAILY rosuvastatin (Crestor) 10 mg PO DAILY semaglutide (Ozempic) mg subcut HPI Comments Details: Luan is a very pleasant 69-year-old female patient. She has a past medical history of renal cysts, recurrent nephrolithiasis, hypertension, hyperlipidemia, diabetes, and overweight. She presents to the office today for follow-up of her nephrolithiasis. In discussion with the patient today she discusses the recent loss of her mom from pneumoniae and the flu. Recent renal imaging results reviewed with the patient today 12/12 bilateral kidneys are normal in size and echotexture. There are no masses, hydronephrosis, or renal calculi noted. Unremarkable renal ultrasound. Patient does report noting i ntermittent episodes of urinary urgency however feels she is managing this well independently. She otherwise denies urinary frequency, incontinence, nocturia, hematuria, dysuria, foul smelling urine, changes to urinary stream, flank pain, fever, and or chills. In office urinalysis results reviewed with the patient today. She otherwise offers no issues or concerns. Plan I instructed the patient to incorporate lifestyle modifications to manage her urinary urgency, including timed voiding and ensuring adequate hydration. She should void every two to three hours to maintain bladder health and minimize urgency episodes. I will order another ultrasound in a year unless earlier symptoms necessitate reevaluation. The patient's past kidney stone issue seems resolved at this time, so no intervention is needed based on her current tests. Patient was informed and verbally consented to the use of an ambient scribe for clinic note documentation during this visit. Discussion Notes I discussed with the patient her urinary urgency symptoms and advised on lifestyle changes including regular voiding intervals of every two to three hours and ensuring adequate fluid intake to maintain bladder health. We reviewed her ultrasound results, confirming the absence of kidney stones, and agreed to a follow-up ultrasound in a year unless earlier evaluation is needed. The patient agreed with the plan and expressed understanding of the proposed recommendations. [facility] Medical History Renal cyst, acquired Recurrent nephrolithiasis Overweight History of kidney stones Hypertension Hyperlipidemia Type II diabetes mellitus Surgical History History of repair of hiatal hernia S/P laparoscopic sleeve gastrectomy History of colonoscopy Other specified postprocedural states History of endometrial ablation History of cholecystectomy Family History Father Hypertension Arthritis Macular degeneration Kidney disease Mother Atrial fibrillation History of colostomy H/O bilateral hip replacements Obesity CVD (cardiovascular disease) Brother Kidney stones Son Spina bifida Hypercholesterolemia History of multiple strokes Daughter Sarcoidosis Obesity Daughter Fibromyalgia Thrombosis Social History Alcohol intake: current Alcohol intake frequency: holidays/special occasions only Patient Tobacco Use Status: Never used Tobacco Review of Systems Const All systems reviewed & are unremarkable except as noted in HPI and below Eyes Reports no additional complaints ENT Reports no additional complaints Card Reports as per HPI Resp Reports no additional complaints GI Reports no additional complaints Reports as per HPI Musc Reports no additional complaints Neuro Reports no additional complaints Psych Reports no additional complaints Endo Reports as per HPI Ambrocio/Lymph Reports no additional complaints Aller/Immun Reports no additional complaints Physical Exam Const General: cooperative, healthy appearing, comfortable, no acute distress, well developed, alert and awake Orientation/consciousness: patient oriented x3 Limitations: no limitations HEENT Head: Yes normal to inspection, Yes normocephalic and Yes atraumatic Ears: hearing grossly normal bilaterally Eyes General: appearance normal, both eyes and all related structures Neck Neck: Yes normal visual inspection and Yes trachea midline Chest Chest palpation & inspection: normal inspection of the chest Resp Effort & Inspection: normal respiratory effort and able to speak in complete s entences Cardio Rate: regular rate GI Inspection: Yes normal to inspection General: Yes no CVA tenderness Back/Spine/Pelvis Back: no CVA tenderness Skin General skin exam: no rashes or lesions noted Neuro General: patient oriented x3 Extrem General: Yes normal to inspection Psych Appearance: grossly normal and well kempt Mental Status: mental status grossly normal Speech and movement: Normal speech and movement present and Clear speech present Affect: normal affect Attitude: cooperative Thought process: Normal thought process present Thought content: Normal thought content present Insight: Fair insight present (Psych) Judgement: Fair judgement present (Psych) Results AMB Urinalysis, Automated UA Leukoctes 0 Thalia/uL Last Edit by Lisset Tovar on 12/20/24 10:13 UA Nitrite Negative Last Edit by Lisset Tovar on 12/20/24 10:13 UA Urobilinogen 0.2 mg/dL Last Edit by Lisset Tovar on 12/20/24 10:13 UA Protein 15 mg/dL Last Edit by Lisset Tovar on 12/20/24 10:13 UA pH 6.5 Last Edit by Lisset Tovar on 12/20/24 10:13 UA Blood 0 Jae/uL Last Edit by Lisset Tovar on 12/20/24 10:13 UA Specific [place] 1.010 Last Edit by Lisset Tovar on 12/20/24 10:13 UA Ketone Negative Last Edit by Lisset Tovar on 12/20/24 10:13 UA Bilirubin 0 mg/dL Last Edit by Lisset Tovar on 12/20/24 10:13 UA Glucose 0 mg/dL Last Edit by Lisset Tovar on 12/20/24 10:13 Results Reviewed Results Reviewed: Laboratory Last Values Urine pH (Auto) 6.5 12/20/24 10:04 Specific [place] (Auto) 1.010 12/20/24 10:04 Urine Protein (Auto) 15 mg/dL 12/20/24 10:04 Glucose (UA)(Auto) 0 mg/dL 12/20/24 10:04 Urine Ketones (Auto) Negative 12/20/24 10:04 Urine Blood (Auto) 0 Jae/uL 12/20/24 10:04 Urine Nitrite (Auto) Negative 12/20/24 10:04 Urine Bilirubin (Auto) 0 mg/dL 12/20/24 10:04 Urine Urobilinogen (Auto) 0.2 mg/dL 12/20/24 10:04 Leukocyte Esterase (Auto) 0 Thalia/uL 12/20/24 10:04 Date of Service: 12/07/24 Procedure(s): US renal BI FINDINGS: Right kidney: The right kidney measures 9.7 x 5.2 x 5.3 cm. Renal parenchymal echotexture and thickness are normal. There are no masses. There is no hydronephrosis or renal calculi. Left Kidney: The left kidney measures 10.1 x 4.1 x 4.7 cm. Renal parenchymal echotexture and thickness are normal. There are no masses. There is no hydronephrosis or renal calculi. The previously seen 3 mm calculus of the lower pole of the left kidney is not identified. IMPRESSION: Unremarkable renal ultrasound. Assessment & Plan Assessment & Plan (1) Nephrolithiasis: Code(s): N20.0 - Calculus of kidney Category: Medical (2) Angiolipoma: Code(s): D17.9 - Benign lipomatous neoplasm, unspecified Category: Medical (3) History of kidney stones: Code(s): Z87.442 - Personal history of urinary calculi Category: Medical Plan Recent renal imaging results reviewed with the patient today; as noted above. In office urinalysis results reviewed with the patient today; as noted above Patient currently denies any bothersome urinary issues or concerns. We discussed healthy bathroom behaviors. Patient reports be happy with current voiding parameters. Discussed, educated, and stressed the importance of drinking plenty of water daily. Will obtain renal ultrasound in 1 year. Follow-up in 1 year with imaging to be completed prior; or sooner with any iss ues, concerns, and or questions. Orders: Orders AMB Urinalysis Automated Today Z13.9 - Encounter for screening, unspecified US renal BI 1 Year N20.0 - Calculus of kidney Patient Instructions: The patient had an opportunity to ask questions regarding the treatment plan. All questions were answered. Physical exam, labs, and imaging were discussed and reviewed in detail. As well as risks, benefits, and discussion of treatment choices. No major barriers to understanding were identified. The patient expressed understanding and agreement with the above treatment plan. The patient was made aware they should contact our office by phone for worsening of their current condition, the appearance of new symptoms, or with any questions or concerns. Compliance is encouraged with any medications and follow up testing that is ordered. It is a privilege to be allowed the opportunity to participate in? your urological care.? Again, if you have any questions or concerns If you have any questions or concerns please do not hesitate to contact me. The office is [phone]. This note is constructed using voice recognition software. While every effort has been made to ensure accuracy metal roofer errors may have been included. Yours sincerely, MASOOD Garcia Coding Level of Care Code Est Pt Level 3 (26515) Diagnoses Nephrolithiasis N20.0 Angiolipoma D17.9 History of kidney stones Z87.442
--- OUTSIDE RECORDS SUMMARY | 2024-12-20 10:44 | XMS_ITS | Clinical Summary ---
Author Organization [facility] Address [address] [place] [address] Care Team Providers Care Supply Chain Design Manager Name Role Phone Karthik Appiah MD Primary Care Provider + [phone] Surgical History Surgery Date Site/Laterality Comments CHOLECYSTECTOMY PROCEDURE: HISTORICAL CHOLECYSTECTOMY STOMACH SURGERY 04/12/2019 PROCEDURE: SC UNLISTED PROCEDURE STOMACH; COMMENT: gastric sleeve OTHER SURGICAL HISTORY PROCEDURE: HYSTEROSCOPY, SURGICAL/ABLATION OTHER SURGICAL HISTORY 04/12/2019 PROCEDURE: SC RPR PARAESOPH HIATAL HERNIA W/LAPT W/O MESH; COMMENT: Same time as lap gastric sleeve surgery OTHER SURGICAL HISTORY 04/12/2019 PROCEDURE: SC EGD DILATION GASTRIC/DUODENAL STRICTURE; COMMENT: Same time [...] AM EDT [facility]ment [facility] [address] [place] [address] 01/02/2025 9:00 AM EDT Appointment [facility] Bone Density [address] [place] [phone] Health Maintenance Due Date Last Done Comments [...] Risk Assessment 08/22/2022 Hepatitis C Screening 08/22/2022 Medicare Annual Wellness Visit 08/22/2022 Social Influencers of Health Screening 08/22/2022 Diabetes: Annual Urine Albumin-Creatinine Ratio (uACR) 09/04/2022 Diabetes: Blood Sugar Contro l Test (HGBA1C) 09/04/2022 Hypertension/CHF/CAD Annual BMP Blood Test 09/04/2022 Breast Cancer Screening 12/20/2023 12/20/19, 08/19/2020, 01/09/2019 COVID-19 Vaccine ( - 2023-2 5 season) 2024 Influenza Vaccine (#1) 2024 RSV Immunization Adult Patients (1 - 1-dose 75+ series) 2029 Osteoporosis [...] Procedure Name Priority Date/Time Associated Diagnosis Comments [facility] SCREENING DIGITAL Routine 12/19/2021 1:46 PM EDT Encounter for screening mammogram for malignant neoplasm of breast [facility] DEXA AXIAL SKELETON Routine 08/19/2020 3:14 PM EST Asymptomatic menopausal state from Last 3 Months or Most Recently Relevant to Health Maintenance Results * [facility] SCREENING DIGITAL (12/19/2021 1:46 PM EDT) Anatomical Region Laterality Modality Mammography 12/19/2021 12:5 9 PM EDT Narrative 12/19/2021 1:[address] [facility] Diagnostic Imaging Department [address] [place] [address] Patient: ??LUAN ZARAGOZA ?/Age/Sex: 1955 - 66 - F Unit#: ??[id number] ? Location/Status: ??SPDIMAM/REG CLI ? Mnemonic/Ordering Site: [...] MLO projection. Computer aided detection with the [employer] was employed. TISSUE DENSITY: b. There are [...] Routine screening mammogram BILATERAL in 1 year. 53334, 37228 3342F, 7025F Dictating Physician: ??UMU BURNS MD Electronically Signed by: ??UMU BURNS MD Dic Date/Time: ??12/19/21 1345 Sign date/Time: ??12/19/21 1346 Procedure Note Umu Burns MD - 09/09/2022 [facility] Diagnostic Imaging Department [address] [place] [address] Patient: LUAN ZARAGOZA /Age/Sex: 1955 - 66 - F Unit#: [id number] Location/Status: SPDIMA/REG CLI Mnemonic/Ordering Site: [facility] Ordering Physician: KARTHIK APPIAH MD [facility] Screening Digital - 12/19/21 - 1319 EXAM: [facility] Screening Digital EXAM DATE AND TIME: 12/19/2021 1:20 PM HISTORY: Screening. Family history of breast carcinoma includingmaternal aunts and 4 paternal cousins. COMPARISON: 08/19/20, 01/09/19, 05/04/16, 12/31/14 TECHNIQUE: CC and MLO views of both breasts were obtained using fullfield digital mammography. Bilateral digital breast tomosynthesis was performedin the MLO projection. Computer aided detection with the [employer] 7.2-Hwas employed. TISSUE DENSITY: b. There are [...] Routine screening mammogram BILATERAL in 1 year. 92891, 44384 3342F, 7025F Dictating Physician: UMU BURNS MD Electronically Signed by: UMU BURNS MD Dic Date/Time: 12/19/21 1345 Sign date/Time: 12/19/21 1346 Karthik Appiah MD IMG BI PROCEDURES Final Resu lt * [facility] DEXA AXIAL SKELETON (08/19/2020 3:14 PM EST) Anatomical Region Laterality Modality Mammography 08/19/2020 11:2 1 AM EST Narrative 08/19/2020 3:[address] [facility] Diagnostic Imaging Department [address] [place] [address] Patient: ??LUAN ZARAGOZA ?/Age/Sex: 1955 - 64 - F Unit#: ??[id number] ? Location/Status: ??SPDIMAM/REG CLI ? Mnemonic/Ordering Site: ??[facility]X/SPMAM Ordering Physician: ??KARTHIK APPIAH MD [facility] Dexa Axial Skeleton - 08/19/20 - 1140 [facility] Dexa Axial Skeleton INDICATION: POSTMENOPAUSAL [...] in total mean hip bone mineral density 49315 A report detailing these results has been enclosed. Dictating Physician: ??SHERICE WHALEN MD Electronically Signed by: ??SHERICE WHALEN MD Dic Date/Time: ??08/19/201512 Sign date/Time: ??08/19/201513 Procedure Note Sherice Whalen MD - 09/08/2022 [facility] Diagnostic Imaging Department [address] [place], [place] [id number] Patient: LUAN ZARAGOZA Elliott /Age/Sex: 1955 - 64 - F Unit#: [id number] Location/Status: [facility] Mnemonic/Ordering Site: [facility] Ordering Physician: KARTHIK APPIAH MD [facility] Dexa Axial Skeleton - 08/19/20 - 1140 [facility] Dexa Axial Skeleton INDICATION: POSTMENOPAUSAL [...] decrease in total mean hip bonemineral density 43338 A report detailing these results has been enclosed. Dictating Physician: SHERICE WHALEN MD Electronically Signed by: SHERICE WHALEN MD Dic Date/Time: 08/19/201512 Sign date/Time: 08/19/201513 Karthik Appiah MD IMG BI PROCEDURES Final Resu lt from Last 3 Months or Most Recently Relevant to Health Maintenance Insurance [employer] MEDICARE [employer]VANTAGE Care Teams Supply Chain Design Manager Relationship Specialty Start Date End Date Karthik Appiah MD [address] [place] [address] PCP - General Internal Medicine 04/21/21
== END 2024-12-20 10:12 | disposition home or self-care (01) ==
LOC: HO.HUSH 09:35
PROVIDERS: PCP Internal Medicine; Visit Provider Nurse Practitioner Family
DX: N20.0 Calculus of kidney (principal); D17.9 Benign lipomatous neoplasm, unspecified; Z87.442 Personal history of urinary calculi; Z13.9 Encounter for screening, unspecified
CPT/HCPCS: 99213

== ENCOUNTER → 2024-12-20 09:35 | Outpatient (BNVA) | payer OTHER, SELFPAY | PROVIDERS: PCP Internal Medicine; Visit Provider Nurse Practitioner Family | DX: N20.0 Calculus of kidney (principal); D17.9 Benign lipomatous neoplasm, unspecified; Z87.442 Personal history of urinary calculi | CPT/HCPCS: 81003 ==

== ENCOUNTER 2025-04-05 13:32 | Outpatient (AMB) | payer OTHER, SELFPAY ==
--- NOTE | 2025-04-05 13:34 | MHC.OFFVISWM ---
VS Expanded 04/05/25 13:45 BP 135/66 Blood Pressure Location Rt brachial Blood Pressure Position Sitting Pulse 75 Pulse Source Pulse Oximeter Temp 96.2 F L Temperature Source Temporal Artery Scan Pulse Oximetry 97 Oxygen Delivery Method Room Air Height 5 ft 1 in Weight 149 lb BMI 28.2 Body Fat % 28.9 Body Fat Mass 43.0 Fat Free Mass 105.3 Visceral Fat Rating 9.0 Body Water % 50.1 Body Water Mass 74.6 Muscle Mass/Score 100.6 Basal Metabolic Rate/Score 1,401 Intake Visit Reasons: OV PO LSG 04/12/2019 Allergies gentamicin (GENTAMICIN) Allergy (Unknown, Verified 04/05/25 13:39) SEVERE EYE PAIN Medication List - Last Reconciled 04/05/25 by CIARA Izaguirre aspirin 81 mg PO DAILY benazepril 20 mg PO BID calcium citrate-vitamin D3 500-200 mg-unit tabs PO BID clotrimazole 1% 1 appl topical BID asclpkukfvpe-dtz-ovmk-FA-vit K 45 mg iron- 800 mcg-120 mcg (Bariatric Multivitamins) caps PO DAILY rosuvastatin (Crestor) 10 mg PO DAILY semaglutide (Ozempic) mg subcut HPI Comments Details: This?is a?69?yo F who is s/p LSG 04/12/2019. Presents for 6 year post op visit. Weight loss of 8.6lbs since last OV 1yr ago. Continues to have occasional discomfort with certain proteins. In particular dairy. Gets full quickly with shakes, but not pain. Can only take in 1 shake per day, otherwise too full. Was on Ozempic- tolerating well. Was taken off of it prior to eye surgery. Having other eye done April 19, will probably not resume until end of April. Doing okay off of it- cravings worse, but has not gained any weight on it. She spent part of the visit sharing some of her recent life stressors including the passing of her mother earlier this year. Her sister also tried to take her own life. Present meal plan includes: 3oz meat, small portion of carb, similar portion of vegetables -2 meals per day like this intermittently uses protein shakes in her coffee continues to struggle with nighttime snacking- tries to have fruit, cheese/crackers, or PB toast; sometimes will have cookies or popcorn MVI Exercise routine includes: walking- 30 min 2-3x/week PFSH Medical History Renal cyst, acquired Recurrent nephrolithiasis Overweight History of kidney stones Hypertension Hyperlipidemia Type II diabetes mellitus Surgical History (Updated 04/05/25 @ 13:41 by Amee Day CMA) Hx of cataract surgery History of repair of hiatal hernia S/P laparoscopic sleeve gastrectomy History of colonoscopy Other specified postprocedural states History of endometrial ablation History of cholecystectomy Family History Father Hypertension Arthritis Macular degeneration Kidney disease Mother Atrial fibrillation History of colostomy H/O bilateral hip replacements Obesity CVD (cardiovascular disease) Brother Kidney stones Son Spina bifida Hypercholesterolemia History of multiple strokes Daughter Sarcoidosis Obesity Daughter Fibromyalgia Thrombosis Social History (Updated 04/05/25 @ 13:42 by Amee Day CMA) Alcohol intake: former Patient Tobacco Use Status: Never used Tobacco Assessment & Plan Assessment & Plan (1) S/P laparoscopic sleeve gastrectomy: Code(s): Z98.84 - Bariatric surgery status Category: Surgical (2) Overweight: Code(s): E66.3 - Overweight Category: Medical Plan We reviewed body composition measurements, pt with healthy body fat %. She will resume Ozempic when cleared by her eye surgeon. Annual labs ordered. RTC 1yr. Orders: Orders Vitamin D 25-OH Total Today Z98.84 - Bariatric surgery status Vitamin B1 Today Z98.84 - Bariatric surgery status Vitamin A Today Z98.84 - Bariatric surgery status Zinc Today Z98.84 - Bariatric surgery status Vitamin B12 and Folate Today Z98.84 - Bariatric surgery status Complete Blood Count Auto Diff Today Z98.84 - Bariatric surgery status Lipid Panel Today Z98.84 - Bariatric surgery status IRON PROFILE Today Z98.84 - Bariatric surgery status Hemoglobin A1c Today Z98.84 - Bariatric surgery status Ferritin Today Z98.84 - Bariatric surgery status TSH reflex Free T4 Today Z98.84 - Bariatric surgery status C Reactive Protein Today Z98.84 - Bariatric surgery status Comprehensive Met. Panel Today Z98.84 - Bariatric surgery status Insulin Today Z98.84 - Bariatric surgery status
[2025-04-05 13:45] VITALS: BP 135/66; PULSE 75; TEMP 35.7; O2SAT 97; BMI 28.2
--- OUTSIDE RECORDS SUMMARY | 2025-04-05 14:08 | XMS_ITS | Clinical Summary ---
Author Organization [facility] Address [address] [place] [address] Phone Care Team Providers Care Stable Hand Name Role Phone Juan Miguel Mae MD Primary Care Provider + [phone] Surgical History Surgery Date Site/Laterality Comments CHOLECYSTECTOMY PROCEDURE: HISTORICAL CHOLECYSTECTOMY STOMACH SURGERY 04/12/2019 PROCEDURE: NM UNLISTED PROCEDURE STOMACH; COMMENT: gastric sleeve OTHER SURGICAL HISTORY PROCEDURE: HYSTEROSCOPY, SURGICAL/ABLATION OTHER SURGICAL HISTORY 04/12/2019 PROCEDURE: NM RPR PARAESOPH HIATAL HERNIA W/LAPT W/O MESH; COMMENT: Same time as lap gastric sleeve surgery OTHER SURGICAL HISTORY 04/12/2019 PROCEDURE: NM EGD DILATION GASTRIC/DUODENAL STRICTURE; COMMENT: Same time as lap gastric sleeve surgery Medical History Medical History Date Comments Mixed hyperlipidemia DX:Mixed hy perlipidemia Essential (primary) hypertension DX:Essential (primary) hypertension Type 2 diabetes mellitus wit hout complications (CMS/HCC V24, CMS/HCC V28) DX:Type 2 diabetes mellitus without complications (HCC) Intestinal malabsorption fol lowing gastrectomy 06/04/2021 DX:Intestinal malabsorption following gastrectomy Family History Medical History Relation Name Comments Other: Cholelithiasis Brother Breast cancer Cousin Other: fibromyalgia Daughter 1 Thrombos is Obesity Daughter 2 Sarcoidosis Hypertension Father Arthritis, Macu lar degeneration, kidney disease Breast cancer Father's Sister Coronary artery disease Mother A-fi b, bilateral hip replacements, colostomy, obesity Breast cancer Mother's Sister Hyperlipidemia Son Spina bifida, hx multiple strokes Relation Name Status Comments Brother Cousin Alive Daughter 1 Daughter 2 Father Father's Sister Alive Mother Mother's Sister Alive Son Social History Tobacco Use Types Packs/Day Years Used Date Smoking Tobacco: Never Smokeless Tobacco: Never Alcohol Use Standard Drinks/Week Comments Never 0 (1 standard drink = 0.6 oz pur e alcohol) Comments No Sex and Gender Information Value Date Recorded Sex Assigned at Female 12/07/2024 2:02 PM EDT Legal Sex Female 10:03 PM EST Gender Identity Female 12/07/2024 2:02 PM EDT Sexual Orientation Straight 12/07/2024 2: 02 PM EDT Obstetrics History Para Term AB IAB SAB Ectopic Multiple Livin g Live Births 3 Last Filed Vital Signs Vital Sign Reading Time Taken Comments Blood Pressure - - Pulse - - Temperature - - Respiratory Rate - - Oxygen Saturation - - Inhaled Oxygen Concentration - - Weight 70.3 kg (155 lb) 01/02/2025 8:39 AM EDT Height 154.9 cm (5' 1 ) 01/02/2025 8:39 AM EDT Body Mass Index 29.29 01/02/2025 8:39 AM EDT Plan of Treatment Health Maintenance Due Date Last Done Comments Diabetes: Annual GFR (Glomerular Filtration Rate) 1955 Diabetes: Annual Foot Exam 1964 Diabetes: Annual Retina Eye Exam 1964 DTaP,Tdap,and Td Vaccines (1 - Tdap) 1973 Pneumococcal Vaccine: 50+ Years (2 of 2 - PPSV23) 09/21/2016 09/21/2015 Cholesterol Screening (Lipid Panel) 08/22/2022 Depression Screening 08/22/2022 Falls Risk Assessment 08/22/2022 Hepatitis C Screening 08/22/2022 Medicare Annual Wellness Visit 08/22/2022 Social Influencers of Health Screening 08/22/2022 Diabetes: Annual Urine Albumin-Creatinine Ratio (uACR) 09/04/2022 Diabetes: Blood Sugar Control Test (HGBA1C) 09/04/2022 Hypertension/CHF/CAD Annual BMP Blood Test 09/04/2022 COVID-19 Vaccine ( season) 2024 07/16/2022, 12/12/2020, 11/15/2020 Influenza Vaccine (#1) 2025 09/14/2023, 2021 Breast Cancer Screening 01/02/2027 01/03/20 25, 12/19/2021, 08/19/2020, Additional history exists RSV Immunization Adult Patients (1 - 1-dose 75+ series) 2029 Osteoporosis Screening (Bone Density Screening) 01/02/2035 01/02/2025, 08/19/2020 Colorectal Cancer Screening: Colonoscopy 03/12/2035 03/12/2025 Zoster Vaccines Completed 05/17/2021, 02/19, 06/13/2017 HIB Vaccines Aged Out No longer eligi [...] age to complete this topic Meningococcal B Vaccine Aged Out No l onger eligible based on patient's age to complete this topic RSV Immunization Patients Under 20 months Aged Out No longer eligible based on patient's age to complete this topic Varicella Vaccines Aged Out No longer eligible based on patient's age to complete this topic Procedures Procedure Name Priority Date/Time Associated Diagnosis Comments COLONOSCOPY Routine 03/12/2025 2:44 PM EDT BD BONE DENSITY DXA AXIAL SKELETON Routine 01/02/2025 8:58 AM EDT Encounter for screening for osteoporosis MG MAMMO DIGITAL SCREENING W LUIS BILAT Routine 01/02/2025 8:40 AM EDT Encounter for screening mammogram for malignant neoplasm of breast from Last 3 Months or Most Recently Relevant to Health Maintenance Results * COLONOSCOPY (03/12/2025 2:44 PM EDT) Anatomical Region Laterality Modality Endoscopy us Historical Provider GI~PROCEDURE ORDERABLES F inal Result * BD Bone Density DXA Axial Skeleton (01/02/2025 8:58 AM EDT) Anatomical Region Laterality Modality Wrist, Hip, L-spine Bone Densito metry 01/02/2025 11:2 4 AM EDT Impressions 01/02/2025 11:25 AM EDT 1. There is no evidence of osteoporosis or osteopenia. There has been an increase of 2.7% in bone mineral density in the lumbar spine since the prior examination of 08/19/2020. There has been a decrease of 3.9% in bone mineral density in the right femur and a decrease of 3.4% in bone mineral density in the left femur. 2. FRAX analysis yields a 10-year probability of major osteoporotic fracture of 13.4% and a 10-year probability of hip fracture of 1.2%. Code 70199 -------- FINAL REPORT -------- Dictated By: Gustavo Parikh Dictated Date: 01/02/2025 11:24 ET Assigned Physician: Gustavo Parikh Reviewed and Electronically Signed By: Gustavo Parikh Signed Date: 01/02/2025 11:25 ET Workstation ID: [id number] Transcribed By: Self Edit Transcribed Date: 01/02/2025 11:24 ET Narrative 01/02/2025 11:25 AM EDT HISTORY: The patient is a 69-year-old postmenopausal female with clinical concern for metabolic bone disease. FINDINGS: Dual energy x-ray absorptiometry of the lumbar spine and femurs is performed. The mean bone mineral density at L1-L4 is 1.420 gm/cm2 which is 120% of that of young normals and 142% of that of age matched controls. This yields a T-score of 2.0 and a Z-score of 3.5 and there is therefore no evidence of osteoporosis or osteopenia here. The mean bone mineral density of the femurs bilaterally is 1.075 gm/cm2 which is 107% of that of young normals and 120% of that of age matched controls. This yields a T-score of 0.5 and a Z-score of 1.9 and there is therefore no evidence of osteoporosis or osteopenia here. Procedure Note Gustavo Parikh MD - 01/02/2025 HISTORY: The patient is a 69-year-old postmenopausal female with clinicalconcern for metabolic bone disease. FINDINGS: Dual energy x-ray absorptiometry of the lumbar spine and femursis performed. The mean bone mineral density at L1-L4 is 1.420 gm/cm2 whichis 120% of that of young normals and 142% of that of age matched controls.This yields a T- score of 2.0 and a Z-score of 3.5 and there is thereforeno evidence of osteoporosis or osteopenia here. The mean bone mineral density of the femurs bilaterally is 1.075 gm/xu7gqrvc is 107% of that of young normals and 120% of that of age matchedcontrols. This yields a T-score of 0.5 and a Z-score of 1.9 and there istherefore no evidence of osteoporosis or osteopenia here. IMPRESSION: 1. There is no evidence of osteoporosis or osteopenia. There has been anincrease of 2.7% in bone mineral density in the lumbar spine since theprior examination of 08/19/2020. There has been a decrease of 3.9% inbone mineral density in the right femur and a decrease of 3.4% in bonemineral density in the left femur. 2. FRAX analysis yields a 10-year probability of major osteoporoticfracture of 13.4% and a 10-year probability of hip fracture of 1.2%. Code 15021 -------- FINAL REPORT -------- Dictated By: Gustavo Parikh Dictated Date: 01/02/2025 11:24 ET Assigned Physician: Gustavo Parikh Reviewed and Electronically Signed By: Gustavo Parikh Signed Date: 01/02/2025 11:25 ET Workstation ID: [id number] Transcribed By: Self Edit Transcribed Date: 01/02/2025 11:24 ET Juan Miguel Mae MD IMG DXA PROCEDURES Final Res ult * MG Mammo Digital Screening w Luis bilat (01/02/2025 8:40 AM EDT) Anatomical Region Laterality Modality Breast Bilateral Mammography 01/02/2025 11:1 2 AM EDT Impressions 01/02/2025 11:17 AM EDT No mammographic evidence of malignancy. A negative mammogram in the presence of a clinically suspicious palpable abnormality does not preclude the possibility of malignancy or alter the indications for biopsy. PQRI CPT II 3342F Code 30984, 96002 PQRI 225 CPT II 7025F TISSUE DENSITY: There are scattered areas of fibroglandular density. (BI-RADS category B) IMPRESSION: Benign. BI-RADS CATEGORY: 2 - BENIGN RECOMMENDATION: Screening bilateral mammogram is recommended in 1 year. Mammo Location: [facility], [facility], [address] [place] [id number] -------- FINAL REPORT -------- Dictated By: Gustavo Parikh Dictated Date: 01/02/2025 11:12 ET Assigned Physician: Gustavo Parikh Reviewed and Electronically Signed By: Gustavo Parikh Signed Date: 01/02/2025 11:17 ET Workstation ID: [id number] Transcribed By: Self Edit Transcribed Date: 01/02/2025 11:12 ET Narrative 01/02/2025 11:17 AM EDT CLINICAL: The patient is a 69 years Female presenting for routine screening mammography. The patient has a family history of breast cancer involving maternal aunts and 4 paternal cousins. COMPARISON: 12/19/2021, 08/19/2020, and 01/09/2019. TECHNIQUE: Full-field digital mammography of the breasts bilaterally consisting of tomosynthesis in MLO and CC projection is performed in the [employer] 2000-D unit. Computer aided detection utilizing the iCAD system was utilized. FINDINGS: The breasts are again seen to be composed of a combination of fatty and fibroglandular elements. Multiple bilateral punctate microcalcifications are without suspicious interval change. Vascular calcifications are again demonstrated. There is no suspicious cluster of microcalcifications, mass, or area of architectural distortion. There is no skin thickening or nipple retraction. Procedure Note Gustavo Parikh MD - 01/02/2025 CLINICAL: The patient is a 69 years Female presenting for routinescreening mammography. The patient has a family history of breast cancerinvolving maternal aunts and 4 paternal cousins. COMPARISON: 12/19/2021, 08/19/2020, and 01/09/2019. TECHNIQUE: Full-field digital mammography of the breasts bilaterallyconsisting of tomosynthesis in MLO and CC projection is performed in the[employer] 2000-D unit. Computer aided detection utilizing the Streamline Health SolutionsDsystem was utilized. FINDINGS: The breasts are again seen to be composed of a combination offatty and fibroglandular elements. Multiple bilateral punctatemicrocalcifications are without suspicious interval change. Vascularcalcifications are again demonstrated. There is no suspicious cluster ofmicrocalcifications, mass, or area of architectural distortion. There isno skin thickening or nipple retraction. IMPRESSION: No mammographic evidence of malignancy. A negative mammogram in the presence of a clinically suspicious palpableabnormality does not preclude the possibility of malignancy or alter theindications for biopsy. PQRI CPT II 3342F Code 08140, 81808 PQRI 225 CPT II 7025F TISSUE DENSITY: There are scattered areas of fibroglandular density.(BI-RADS category B) IMPRESSION: Benign. BI-RADS CATEGORY: 2 - BENIGN RECOMMENDATION: Screening bilateral mammogram is recommended in 1 year. Mammo Location: [facility], [facility], [address] [place] [id number] -------- FINAL REPORT -------- Dictated By: Gustavo Parikh Dictated Date: 01/02/2025 11:12 ET Assigned Physician: Gustavo Parikh Reviewed and Electronically Signed By: Gustavo Parikh Signed Date: 01/02/2025 11:17 ET Workstation ID: [id number] Transcribed By: Self Edit Transcribed Date: 01/02/2025 11:12 ET Juan Miguel Mae MD IM BI PROCEDURES Final Resu lt from Last 3 Months or Most Recently Relevant to Health Maintenance Insurance [employer] MEDICARE ADVANTAGE Care Teams Stable Hand Relationship Specialty Start Date End Date Juan Miguel Mae MD [address] [place] [address] PCP - General Internal Medicine 04/21/21
== END 2025-04-05 14:10 | disposition home or self-care (01) ==
LOC: HO.HBS 13:33
PROVIDERS: PCP Internal Medicine; Visit Provider Physician Assistant Surgical
DX: E66.3 Overweight (principal); Z68.28 Body mass index [BMI] 28.0-28.9, adult; Z90.3 Acquired absence of stomach [part of]; Z98.84 Bariatric surgery status
CPT/HCPCS: 99214; G2211